=== PATIENT | male | born 1940 | race Hispanic/Latino ===

== ENCOUNTER → 2021-03-14 | Day surgery (SDC) | payer MEDICARE, OTHER ==
[2021-03-11 10:50] LABS: BASOPHILS # (AUTO) 0.1 (0.0-0.1); BASOPHILS % 1.1 % (0.0-1.0); EOSINOPHILS # (AUTO) 0.1 (0.0-0.4); EOSINOPHILS % 2.1 % (0.0-6.0); HEMATOCRIT 43.5 % (38.2-49.6); HEMOGLOBIN 14.6 g/dL (14.0-18.0); LYMPHOCYTES # (AUTO) 1.3 (1.0-3.2); LYMPHOCYTES % 23.3 % (18.0-39.1); MEAN CORPUSCULAR HEMOGLOBIN 30.7 pg (28-32); MEAN CORPUSCULAR HGB CONC 33.6 g/dL (31-35); MEAN CORPUSCULAR VOLUME 91.4 fL (81-99); MONOCYTES % 16.9 % (4.4-11.3); NEUTROPHILS # (AUTO) 3.2 (2.1-6.9); NEUTROPHILS % 56.2 % (38.7-80.0); PLATELET COUNT 295 x10e3/uL (140-360); RED BLOOD COUNT 4.76 x10e6/uL (4.3-5.7); RED CELL DISTRIBUTION WIDTH 13.3 % (11.7-14.4)
[~2021-03-14] MED LIST: ACETAMINOPHEN325 M1 PO; AMLODIPINE BESYL5 MG PO; ASPIRIN81 MG PO; DEXAMETHASONE SOD PHOS INJ 4 MG/ML SDV ONE; EPHEDRINE SULFATE INJ 50 MG/ML VIAL ONE; FENTANYL CITRATE/PF 100MCG/2 ML INJ ONE; LIDOCAINE HCL 2% LOCAL INJ 5 ML SDV VIAL INJ ONE; ONDANSETRON HCL INJ 2MG/ML 2ML 2 MG/ML VIAL ONE; POVIDONE IODINE 0.05% 0.05 % ML PO ONE; PROPOFOL IV EMULSION 10 MG/ML 20 ML VIAL ONE; SEVOFLURANE INHAL SOLN 250 ML PEN BTL ONE; SODIUM CHLORIDE 0.9% 50ML 50 ML ONE
[2021-03-14 15:45] VITALS: BP 135/78
== END | disposition home or self-care (01) ==
LOC: OR 10:18
PROVIDERS: ATTEND Specialist
DX: I10 Essential (primary) hypertension (principal); S52.531A Colles' fracture of right radius, initial encounter for closed fracture; K21.9 Gastro-esophageal reflux disease without esophagitis; W01.198A Fall on same level from slipping, tripping and stumbling with subsequent striking against other object, initial encounter; Z79.82 Long term (current) use of aspirin; Z01.810 Encounter for preprocedural cardiovascular examination; Z01.812 Encounter for preprocedural laboratory examination; Z01.818 Encounter for other preprocedural examination; Z20.822 Contact with and (suspected) exposure to COVID-19
CPT/HCPCS: 25607; 36415; 71046; 85025; 93005; C1713 ×6; J0690; J3010; U0002; 76000; J1100; J2001; J2405

== ENCOUNTER 2025-02-26 17:24 | Emergency (ER) | payer MEDICARE ==
[~2025-02-26 17:24] MED LIST changes: +Calcium Carbonate PO; -DEXAMETHASONE SOD PHOS INJ 4 MG/ML SDV ONE; +Docusate Sodium PO; -EPHEDRINE SULFATE INJ 50 MG/ML VIAL ONE; -FENTANYL CITRATE/PF 100MCG/2 ML INJ ONE; -LIDOCAINE HCL 2% LOCAL INJ 5 ML SDV VIAL INJ ONE; +LOSARTAN POTASS25 MG PO; +LOVENOX40 MG/0.4 SC; +MECLIZINE HCL12.5 MG PO; +MEDROL; +MELOXICAM7.5 MG PO; +MILK OF MA400 MG/5 M PO; -ONDANSETRON HCL INJ 2MG/ML 2ML 2 MG/ML VIAL ONE; -POVIDONE IODINE 0.05% 0.05 % ML PO ONE; +PRAVASTATIN SOD40 MG; +PRAVASTATIN SOD40 MG PO; -PROPOFOL IV EMULSION 10 MG/ML 20 ML VIAL ONE; +Psyllium PO; -SEVOFLURANE INHAL SOLN 250 ML PEN BTL ONE; -SODIUM CHLORIDE 0.9% 50ML 50 ML ONE; +VITAMIN D3125 MCG PO
== END 2025-02-26 19:00 | disposition short-term general hospital (02) ==
LOC: ER 17:40
DX: R42 Dizziness and giddiness (principal)